=== PATIENT | female | born 1965 | race Asian ===

== ENCOUNTER 2020-11-19 15:28 | Emergency (ER) | payer OTHER ==
[~2020-11-19] VITALS: Ht 165.1 cm; Wt 84.5 kg
[2020-11-19 15:41] VITALS: BP 135/91
[2020-11-19] MEDS ORDERED: METF-960 PO (15:43)
[2020-11-19] MEDS ORDERED: LOSA25TA21 PO (15:43)
[2020-11-19] MEDS ORDERED: INSU100I26 SQ (15:43)
[2020-11-19] MEDS ORDERED: ACAR50TA2 PO (15:44)
[2020-11-19] MEDS ORDERED: HYDR-1475 PO (15:44)
[2020-11-19 17:59] LABS: COVID AG,FIA SOURCE NASOPHARYNGEAL
[2020-11-19 18:24] LABS: GLUCOSE,POINT OF CARE 172 MG/DL (70-110)
== END 2020-11-19 19:10 | disposition home or self-care (01) ==
LOC: EMS 15:28
DX: J02.9 Acute pharyngitis, unspecified (principal); Z20.828 Contact with and (suspected) exposure to other viral communicable diseases
CPT/HCPCS: 82962; 87426; 99283; C9803